=== PATIENT | female | born 1995 ===

== ENCOUNTER 2020-08-28 22:16 | Outpatient (CLI) | payer MEDICAID ==
[2020-08-28 23:20] VITALS: BP 113/72
[2020-08-28] MEDS ORDERED: LACTATED RINGERS 500 ML IV ONE (23:20)
[2020-08-29 00:10] LABS: Bilirubin,Urine NEG (Negative); Blood,Urine NEG (Negative); Calcium Oxalate Crystals,Urine 3+; Color,Urine Yellow (Yellow); Mucus,Urine FEW /HPF
== END 2020-08-29 00:08 | disposition home or self-care (01) ==
LOC: TRG 22:16 → APU 22:18 → TRG 08-29 00:08
PROVIDERS: ATTEND Obstetrics & Gynecology
DX: O47.03 False labor before 37 completed weeks of gestation, third trimester (principal); Z3A.36 36 weeks gestation of pregnancy
CPT/HCPCS: 59025; 81001

== ENCOUNTER 2020-09-01 08:43 | Inpatient (IN) | payer MEDICAID ==
[2020-09-01] MEDS ORDERED: ePHEDrine SULFATE 50 MG/1 ML INJ IV PRN (11:18)
[2020-09-01] MEDS ORDERED: TERBUTALINE 1 MG/1 ML INJ SUB-Q PRN (11:18)
[2020-09-01] MEDS ORDERED: NalbUPHINE 10 MG/1 ML INJ IV PRN (11:18)
[2020-09-01] MEDS ORDERED: fentaNYL 100 MCG/2 ML INJ IV PRN (11:18)
[2020-09-01] MEDS ORDERED: ONDANSETRON 4 MG/2 ML INJ IV PRN (11:18)
[2020-09-01] MEDS ORDERED: MINERAL OIL 30 ML ORAL LIQD PO PRN (11:18)
--- NOTE | 2020-09-01 11:18 | History and Physical Report ---
History of Present Illness Date of examination: 09/01/20 Date of admission: 09/01/2020 Chief complaint: PPROM History of present illness: PPROM Past History Past Surgical History: no surgical history Social history: no significant social history - Obstetrical History Expected Date of Delivery: 09/24/20 Actual Gestation: 36 Week(s) 5 Day(s) : 2 Medications and Allergies Allergies Allergy/AdvReac Type Severity Reaction Status Date / Time No Known Allergies Allergy Verified 09/01/20 16:11 Home Medications Medication Instructions Recorded Confirmed Last Taken Type No.137/Iron/Folic Acd 1 tab PO DAILY 09/01/20 09/01/20 08/31/20 History [[facility] Tablet] 0800 - Physical Exam Breasts: Positive: deferred Cardiovascular: Regular rate Lungs: Positive: Clear to auscultation Abdomen: Positive: normal appearance, soft, normal bowel sounds Genitourinary (Female): Positive: normal external genitalia Uterus: Positive: normal size (FH 38cm) Anus/Rectum: Positive: normal perianal skin Extremities: Positive: normal Deep Tendon Reflex Grade: Normal +2 - Obstetrical FHR: category 1 Cervical Dilatation: 1 Cervical Effacement Percentage: 50 station: -3 Uterine Contraction Pattern: Irregular Results Result Diagrams: 09/01/20 17:30 All other labs normal. Assessment and Plan admission abx misoprostil/oxytocin pain med prn EDA Ortega MD
[2020-09-01] MEDS ORDERED: OXYTOCIN DRIP 30 UNITS/500 ML BAG IV SCH ×2 (12:00)
[2020-09-01] MEDS ORDERED: AMPICILLIN/NS 2 GM/100 ML 2 GM/100 ML BAG IV ONE ×2 (12:00→17:00)
[2020-09-01] MEDS ORDERED: LIDOCAINE (2%) 20 MG/1 ML VIAL 20 ML MDV INFILTRATI ONE (12:00)
[2020-09-01] MEDS: LACTATED RINGERS 1,000 ML IV SCH (16:53)
[2020-09-01] MEDS ORDERED: miSOPROStol 25 MCG TAB PO ONE (17:00)
[2020-09-01 18:12] LABS: Hemoglobin 10.7 gm/dl (10.1-14.3); Mean Corpuscular HGB Conc 34 % (30-34); Mean Corpuscular Volume 81 fl (79-97); Platelet Count 305 K/mm3 (140-440); Red Blood Count 3.93 M/mm3 (3.65-5.03); Red Cell Distribution Width 14.6 % (13.2-15.2)
[2020-09-01] MEDS: AMPICILLIN/NS 1 GM/50 ML 1 GM/50 ML BAG IV SCH (20:21)
[2020-09-01] MEDS ORDERED: miSOPROStol 25 MCG TAB PO SCH (23:00)
[2020-09-02] MEDS: AMPICILLIN/NS 1 GM/50 ML 1 GM/50 ML BAG IV SCH ×5 (00:10→18:14)
[2020-09-02] MEDS: BUTORPHANOL 2 MG/1 ML INJ IV PRN ×2 (02:13→04:33)
[2020-09-02] MEDS: LACTATED RINGERS 1,000 ML IV SCH ×4 (02:21→17:43)
--- NOTE | 2020-09-02 04:11 | Progress Note ---
Subjective - Subjective Date of service: 09/02/20 Interval history: Misoprostil 25mcg POx1 dose given 09/02/20 at 23:00 cervix 2/50/-3 FHT 120 baseline, +ve accelerations [place]: Q5 minutes Plan for next cytotec at 05:00 then oxytocin per protocol. Maternal/ well being reassuring overall. Mayelin Ortega MD Objective - Vital Signs Vital Signs: Vital Signs - 12hr 09/01/20 09/01/20 09/01/20 16:15 16:20 16:25 Temperature Pulse Rate 102 H 97 H 109 H Respiratory Rate Blood Pressure Blood Pressure [Left] O2 Sat by Pulse 96 97 96 Oximetry 09/01/20 09/01/20 09/01/20 16:30 16:35 16:40 Temperature Pulse Rate 104 H 101 H 96 H Respiratory Rate Blood Pressure Blood Pressure [Left] O2 Sat by Pulse 97 97 100 Oximetry 09/01/20 09/01/20 09/01/20 16:45 16:50 16:55 Temperature Pulse Rate 96 H 104 H 86 Respiratory Rate Blood Pressure Blood Pressure [Left] O2 Sat by Pulse 99 98 98 Oximetry 09/01/20 09/01/20 09/01/20 16:56 17:00 17:05 Temperature 98.5 F Pulse Rate 94 H 95 H 99 H Respiratory 14 Rate Blood Pressure 104/66 Blood Pressure 104/66 [Left] O2 Sat by Pulse 97 98 97 Oximetry 09/01/20 09/01/20 09/01/20 17:10 17:15 17:20 Temperature Pulse Rate 100 H 99 H 91 H Respiratory Rate Blood Pressure Blood Pressure [Left] O2 Sat by Pulse 98 98 99 Oximetry 09/01/20 09/01/20 09/01/20 17:25 17:30 17:35 Temperature Pulse Rate 95 H 93 H 88 Respiratory Rate Blood Pressure Blood Pressure [Left] O2 Sat by Pulse 98 98 98 Oximetry 09/01/20 09/01/20 09/01/20 17:40 17:45 17:50 Temperature Pulse Rate 98 H 91 H 87 Respiratory Rate Blood Pressure Blood Pressure [Left] O2 Sat by Pulse 98 98 98 Oximetry 09/01/20 09/01/20 09/01/20 17:55 17:56 18:00 Temperature Pulse Rate 88 86 100 H Respiratory Rate Blood Pressure 103/67 Blood Pressure [Left] O2 Sat by Pulse 98 98 Oximetry 09/01/20 09/01/20 09/01/20 18:05 18:10 18:15 Temperature Pulse Rate 96 H 90 85 Respiratory Rate Blood Pressure Blood Pressure [Left] O2 Sat by Pulse 97 98 98 Oximetry 09/01/20 09/01/20 09/01/20 18:20 18:25 18:29 Temperature 98.4 F Pulse Rate 94 H 91 H 77 Respiratory 16 Rate Blood Pressure 116/71 Blood Pressure 116/71 [Left] O2 Sat by Pulse 97 98 98 Oximetry 09/01/20 09/01/20 09/01/20 18:30 18:35 18:40 Temperature Pulse Rate 92 H 92 H 90 Respiratory Rate Blood Pressure Blood Pressure [Left] O2 Sat by Pulse 98 99 98 Oximetry 09/01/20 09/01/20 09/01/20 18:45 18:50 18:55 Temperature Pulse Rate 93 H 81 83 Respiratory Rate Blood Pressure 118/77 Blood Pressure [Left] O2 Sat by Pulse 97 99 100 Oximetry 09/01/20 09/01/20 09/01/20 19:00 19:05 19:10 Temperature Pulse Rate 94 H 96 H 89 Respiratory Rate Blood Pressure Blood Pressure [Left] O2 Sat by Pulse 99 98 97 Oximetry 09/01/20 09/01/20 09/01/20 19:15 19:20 19:25 Temperature Pulse Rate 94 H 82 83 Respiratory Rate Blood Pressure Blood Pressure [Left] O2 Sat by Pulse 98 99 97 Oximetry 09/01/20 09/01/20 09/01/20 19:30 19:35 19:40 Temperature Pulse Rate 93 H 92 H 86 Respiratory Rate Blood Pressure Blood Pressure [Left] O2 Sat by Pulse 97 99 98 Oximetry 09/01/20 09/01/20 09/01/20 19:45 19:50 19:55 Temperature Pulse Rate 99 H 113 H 99 H Respiratory Rate Blood Pressure Blood Pressure [Left] O2 Sat by Pulse 99 98 99 Oximetry 09/01/20 09/01/20 09/01/20 20:00 20:05 20:09 Temperature Pulse Rate 95 H 108 H 97 H Respiratory Rate Blood Pressure 94/54 Blood Pressure [Left] O2 Sat by Pulse 99 99 Oximetry 09/01/20 09/01/20 09/01/20 20:10 20:15 20:20 Temperature 98.5 F Pulse Rate 105 H 107 H 110 H Respiratory 14 Rate Blood Pressure Blood Pressure [Left] O2 Sat by Pulse 99 98 98 Oximetry 09/01/20 09/01/20 09/01/20 20:25 20:30 20:40 Temperature Pulse Rate 114 H 114 H 110 H Respiratory Rate Blood Pressure Blood Pressure [Left] O2 Sat by Pulse 98 98 98 Oximetry 09/01/20 09/01/20 09/01/20 20:45 20:50 20:55 Temperature Pulse Rate 103 H 99 H 99 H Respiratory Rate Blood Pressure Blood Pressure [Left] O2 Sat by Pulse 98 98 98 Oximetry 09/01/20 09/01/20 09/01/20 21:00 21:05 21:10 Temperature Pulse Rate 93 H 95 H 93 H Respiratory Rate Blood Pressure Blood Pressure [Left] O2 Sat by Pulse 98 97 98 Oximetry 09/01/20 09/01/20 09/01/20 21:15 21:20 21:25 Temperature Pulse Rate 111 H 95 H 95 H Respiratory Rate Blood Pressure Blood Pressure [Left] O2 Sat by Pulse 98 98 99 Oximetry 09/01/20 09/01/20 09/01/20 21:30 21:35 21:40 Temperature Pulse Rate 104 H 105 H 107 H Respiratory Rate Blood Pressure Blood Pressure [Left] O2 Sat by Pulse 98 98 98 Oximetry 09/01/20 09/01/20 09/01/20 21:45 21:50 21:55 Temperature Pulse Rate 111 H 100 H 90 Respiratory Rate Blood Pressure Blood Pressure [Left] O2 Sat by Pulse 98 98 99 Oximetry 09/01/20 09/01/20 09/01/20 22:00 22:05 22:10 Temperature Pulse Rate 87 94 H 86 Respiratory Rate Blood Pressure Blood Pressure [Left] O2 Sat by Pulse 98 99 98 Oximetry 09/01/20 09/01/20 09/01/20 22:15 22:20 22:25 Temperature Pulse Rate 91 H 95 H 92 H Respiratory Rate Blood Pressure Blood Pressure [Left] O2 Sat by Pulse 98 98 99 Oximetry 09/01/20 09/01/20 09/01/20 22:30 22:35 22:40 Temperature Pulse Rate 92 H 95 H 88 Respiratory Rate Blood Pressure Blood Pressure [Left] O2 Sat by Pulse 99 98 98 Oximetry 09/01/20 09/01/20 09/01/20 22:45 22:50 22:55 Temperature Pulse Rate 105 H 91 H 87 Respiratory Rate Blood Pressure Blood Pressure [Left] O2 Sat by Pulse 99 99 100 Oximetry 09/01/20 09/01/20 09/01/20 23:00 23:05 23:09 Temperature 98.1 F Pulse Rate 97 H 101 H Respiratory Rate Blood Pressure Blood Pressure [Left] O2 Sat by Pulse 99 98 Oximetry 09/01/20 09/01/20 09/01/20 23:10 23:15 23:20 Temperature Pulse Rate 84 90 82 Respiratory Rate Blood Pressure Blood Pressure [Left] O2 Sat by Pulse 98 97 98 Oximetry 09/01/20 09/01/20 09/01/20 23:25 23:28 23:30 Temperature Pulse Rate 89 83 84 Respiratory Rate Blood Pressure 115/80 Blood Pressure [Left] O2 Sat by Pulse 98 97 Oximetry 09/01/20 09/01/20 09/01/20 23:35 23:40 23:45 Temperature Pulse Rate 82 90 82 Respiratory Rate Blood Pressure Blood Pressure [Left] O2 Sat by Pulse 97 98 96 Oximetry 09/01/20 09/01/20 09/02/20 23:50 23:55 00:00 Temperature Pulse Rate 88 82 84 Respiratory Rate Blood Pressure Blood Pressure [Left] O2 Sat by Pulse 96 96 97 Oximetry 09/02/20 09/02/20 09/02/20 00:05 00:10 00:15 Temperature Pulse Rate 87 80 81 Respiratory Rate Blood Pressure Blood Pressure [Left] O2 Sat by Pulse 97 98 96 Oximetry 09/02/20 09/02/20 09/02/20 00:20 00:25 00:30 Temperature Pulse Rate 86 84 86 Respiratory Rate Blood Pressure Blood Pressure [Left] O2 Sat by Pulse 98 99 98 Oximetry 09/02/20 09/02/20 09/02/20 00:35 00:40 00:45 Temperature Pulse Rate 89 95 H 83 Respiratory Rate Blood Pressure Blood Pressure [Left] O2 Sat by Pulse 98 99 97 Oximetry 09/02/20 09/02/20 09/02/20 00:50 00:55 01:00 Temperature Pulse Rate 84 95 H 80 Respiratory Rate Blood Pressure Blood Pressure [Left] O2 Sat by Pulse 97 97 98 Oximetry 09/02/20 09/02/20 09/02/20 01:05 01:10 01:12 Temperature 98.5 F Pulse Rate 93 H 94 H Respiratory Rate Blood Pressure Blood Pressure [Left] O2 Sat by Pulse 97 97 Oximetry 09/02/20 09/02/20 09/02/20 01:15 01:20 01:25 Temperature Pulse Rate 84 92 H 85 Respiratory Rate Blood Pressure Blood Pressure [Left] O2 Sat by Pulse 97 98 98 Oximetry 09/02/20 09/02/20 09/02/20 01:30 01:35 01:40 Temperature Pulse Rate 84 84 109 H Respiratory Rate Blood Pressure Blood Pressure [Left] O2 Sat by Pulse 98 98 98 Oximetry 09/02/20 09/02/20 09/02/20 01:45 01:50 01:55 Temperature Pulse Rate 86 93 H 87 Respiratory Rate Blood Pressure Blood Pressure [Left] O2 Sat by Pulse 98 96 95 Oximetry 09/02/20 09/02/20 09/02/20 02:00 02:05 02:10 Temperature Pulse Rate 97 H 83 82 Respiratory Rate Blood Pressure Blood Pressure [Left] O2 Sat by Pulse 99 98 97 Oximetry 09/02/20 09/02/20 09/02/20 02:15 02:19 02:20 Temperature Pulse Rate 95 H 78 75 Respiratory Rate Blood Pressure Blood Pressure [Left] O2 Sat by Pulse 100 92 95 Oximetry 09/02/20 09/02/20 09/02/20 02:25 02:30 02:35 Temperature 98.4 F Pulse Rate 80 78 82 Respiratory Rate Blood Pressure Blood Pressure [Left] O2 Sat by Pulse 97 99 98 Oximetry 09/02/20 09/02/20 09/02/20 02:40 02:45 02:50 Temperature Pulse Rate 94 H 82 82 Respiratory Rate Blood Pressure Blood Pressure [Left] O2 Sat by Pulse 98 98 97 Oximetry 09/02/20 09/02/20 09/02/20 02:55 03:00 03:05 Temperature Pulse Rate 83 81 82 Respiratory Rate Blood Pressure Blood Pressure [Left] O2 Sat by Pulse 98 98 98 Oximetry 09/02/20 09/02/20 09/02/20 03:10 03:15 03:20 Temperature Pulse Rate 82 82 89 Respiratory Rate Blood Pressure Blood Pressure [Left] O2 Sat by Pulse 99 99 98 Oximetry 09/02/20 09/02/20 09/02/20 03:25 03:30 03:35 Temperature Pulse Rate 77 79 74 Respiratory Rate Blood Pressure Blood Pressure [Left] O2 Sat by Pulse 98 99 99 Oximetry 09/02/20 09/02/20 09/02/20 03:40 03:45 03:50 Temperature Pulse Rate 78 70 84 Respiratory Rate Blood Pressure Blood Pressure [Left] O2 Sat by Pulse 99 99 100 Oximetry 09/02/20 09/02/20 09/02/20 03:55 04:00 04:05 Temperature Pulse Rate 80 78 77 Respiratory Rate Blood Pressure Blood Pressure [Left] O2 Sat by Pulse 100 100 100 Oximetry - Labs Labs: Abnormal Labs 09/01/20 17:30 MCH 27 L Laboratory Results - last 24 hr 09/01/20 09/01/20 17:30 17:30 WBC 8.8 RBC 3.93 Hgb 10.7 Hct 32.0 MCV 81 MCH 27 L MCHC 34 RDW 14.6 Plt Count 305 Blood Type O POSITIVE Antibody Screen Negative
--- NOTE | 2020-09-02 07:46 | Anesthesia Consultation ---
Anesthesia Consult and Med Hx Date of service: 09/02/20 - Airway Anesthetic Teeth Evaluation: Good ROM Head & Neck: Adequate Mental/Hyoid Distance: Adequate Mallampati Class: Class II Intubation Access Assessment: Probably Good - Pulmonary Exam CTA: Yes - Cardiac Exam Cardiac Exam: RRR - Pre-Operative Health Status ASA Pre-Surgery Classification: ASA2 Proposed Anesthetic Plan: Epidural - Pulmonary Hx Asthma: No - Cardiovascular System Hx Hypertension: No - Central Nervous System Hx Seizures: No Hx Psychiatric Problems: No - Endocrine Hx Renal Disease: No Hx Hypothyroidism: No Hx Hyperthyroidism: No - Hematic Hx Anemia: No Hx Sickle Cell Disease: No - Other Systems Hx Alcohol Use: No
--- NOTE | 2020-09-02 08:07 | Progress Note ---
Labor Epidural - Labor Epidural Start Time: 07:55 Stop Time: 07:59 Performed by:: CONRAD NELSON Procedure: Patient is requesting epidural for labor pain. H&P, and labs reviewed. Procedure explained, questions answered, consent obtained. Patient in sitting position with blood pressure cuff and pulse ox on and working. Timeout performed immediately before start of procedure. Sterile chlorahexadine 0.5% prep/drape. 3 mL 1% lidocaine skin wheal at L[3]-L[4]. 18-gauge Gameotictead epidural needle advanced to [id number] with saline at [7] cm. Epidural catheter advanced to [12] cm, negative aspiration for blood and csf, negative test dose 3 ml 1.5% lidocaine with epinephrine. Epidural dexmedetomidine [30] mcg administered. Sterile steri-strips and tegaderm applied, followed by tape reinforcement. Patient tolerated procedure well. Conrad LOBO
[2020-09-02] MEDS ORDERED: ePHEDrine SULFATE 50 MG/1 ML INJ IV PRN (08:34)
[2020-09-02] MEDS ORDERED: NALOXONE 2 MG/2 ML INJ IV PRN (08:34)
[2020-09-02] MEDS: fentaNYL-BUPIV 2 MCG/ML-0.125% 200 MCG/100 ML BAG EPIDURAL SCH ×2 (08:54→17:14)
--- NOTE | 2020-09-02 09:15 | Progress Note ---
Assessment and Plan A: at 36 weeks, 6 days gestation. PPROM. P: Continuous EFM. GBS prophylaxis. Subjective - Subjective Date of service: 09/02/20 Principal diagnosis: at 36 weeks, 6 days gestation; PPROM Interval history: Assumed care of patient at 08:00 today. Patient is leaking clear fluid. No vaginal bleeding. Has epidural and is comfortable. Has had cytotec. SVE 4/60/-3. Contractions every 3 1/2 to 5 minutes. Uterus palpates soft between contractions. Patient reports: loss of fluid, contractions Objective - Vital Signs Vital Signs: Vital Signs - 12hr 09/01/20 09/01/20 09/01/20 21:15 21:20 21:25 Temperature Pulse Rate 111 H 95 H 95 H Respiratory Rate Blood Pressure O2 Sat by Pulse 98 98 99 Oximetry 09/01/20 09/01/20 09/01/20 21:30 21:35 21:40 Temperature Pulse Rate 104 H 105 H 107 H Respiratory Rate Blood Pressure O2 Sat by Pulse 98 98 98 Oximetry 09/01/20 09/01/20 09/01/20 21:45 21:50 21:55 Temperature Pulse Rate 111 H 100 H 90 Respiratory Rate Blood Pressure O2 Sat by Pulse 98 98 99 Oximetry 09/01/20 09/01/20 09/01/20 22:00 22:05 22:10 Temperature Pulse Rate 87 94 H 86 Respiratory Rate Blood Pressure O2 Sat by Pulse 98 99 98 Oximetry 09/01/20 09/01/20 09/01/20 22:15 22:20 22:25 Temperature Pulse Rate 91 H 95 H 92 H Respiratory Rate Blood Pressure O2 Sat by Pulse 98 98 99 Oximetry 09/01/20 09/01/20 09/01/20 22:30 22:35 22:40 Temperature Pulse Rate 92 H 95 H 88 Respiratory Rate Blood Pressure O2 Sat by Pulse 99 98 98 Oximetry 09/01/20 09/01/20 09/01/20 22:45 22:50 22:55 Temperature Pulse Rate 105 H 91 H 87 Respiratory Rate Blood Pressure O2 Sat by Pulse 99 99 100 Oximetry 09/01/20 09/01/20 09/01/20 23:00 23:05 23:09 Temperature 98.1 F Pulse Rate 97 H 101 H Respiratory Rate Blood Pressure O2 Sat by Pulse 99 98 Oximetry 05/09/01/20 09/01/20 23:10 23:15 23:20 Temperature Pulse Rate 84 90 82 Respiratory Rate Blood Pressure O2 Sat by Pulse 98 97 98 Oximetry 09/01/20 09/01/20 09/01/20 23:25 23:28 23:30 Temperature Pulse Rate 89 83 84 Respiratory Rate Blood Pressure 115/80 O2 Sat by Pulse 98 97 Oximetry 09/01/20 09/01/20 09/01/20 23:35 23:40 23:45 Temperature Pulse Rate 82 90 82 Respiratory Rate Blood Pressure O2 Sat by Pulse 97 98 96 Oximetry 09/01/20 09/01/20 09/02/20 23:50 23:55 00:00 Temperature Pulse Rate 88 82 84 Respiratory Rate Blood Pressure O2 Sat by Pulse 96 96 97 Oximetry 09/02/20 09/02/20 09/02/20 00:05 00:10 00:15 Temperature Pulse Rate 87 80 81 Respiratory Rate Blood Pressure O2 Sat by Pulse 97 98 96 Oximetry 09/02/20 09/02/20 09/02/20 00:20 00:25 00:30 Temperature Pulse Rate 86 84 86 Respiratory Rate Blood Pressure O2 Sat by Pulse 98 99 98 Oximetry 09/02/20 09/02/20 09/02/20 00:35 00:40 00:45 Temperature Pulse Rate 89 95 H 83 Respiratory Rate Blood Pressure O2 Sat by Pulse 98 99 97 Oximetry 09/02/20 09/02/20 09/02/20 00:50 00:55 01:00 Temperature Pulse Rate 84 95 H 80 Respiratory Rate Blood Pressure O2 Sat by Pulse 97 97 98 Oximetry 09/02/20 09/02/20 09/02/20 01:05 01:10 01:12 Temperature 98.5 F Pulse Rate 93 H 94 H Respiratory Rate Blood Pressure O2 Sat by Pulse 97 97 Oximetry 09/02/20 09/02/20 09/02/20 01:15 01:20 01:25 Temperature Pulse Rate 84 92 H 85 Respiratory Rate Blood Pressure O2 Sat by Pulse 97 98 98 Oximetry 09/02/20 09/02/20 09/02/20 01:30 01:35 01:40 Temperature Pulse Rate 84 84 109 H Respiratory Rate Blood Pressure O2 Sat by Pulse 98 98 98 Oximetry 09/02/20 09/02/20 09/02/20 01:45 01:50 01:55 Temperature Pulse Rate 86 93 H 87 Respiratory Rate Blood Pressure O2 Sat by Pulse 98 96 95 Oximetry 09/02/20 09/02/20 09/02/20 02:00 02:05 02:10 Temperature Pulse Rate 97 H 83 82 Respiratory Rate Blood Pressure O2 Sat by Pulse 99 98 97 Oximetry 09/02/20 09/02/20 09/02/20 02:15 02:19 02:20 Temperature Pulse Rate 95 H 78 75 Respiratory Rate Blood Pressure O2 Sat by Pulse 100 92 95 Oximetry 09/02/20 09/02/20 09/02/20 02:25 02:30 02:35 Temperature 98.4 F Pulse Rate 80 78 82 Respiratory Rate Blood Pressure O2 Sat by Pulse 97 99 98 Oximetry 09/02/20 09/02/20 09/02/20 02:40 02:45 02:50 Temperature Pulse Rate 94 H 82 82 Respiratory Rate Blood Pressure O2 Sat by Pulse 98 98 97 Oximetry 09/02/20 09/02/20 09/02/20 02:55 03:00 03:05 Temperature Pulse Rate 83 81 82 Respiratory Rate Blood Pressure O2 Sat by Pulse 98 98 98 Oximetry 09/02/20 09/02/20 09/02/20 03:10 03:15 03:20 Temperature Pulse Rate 82 82 89 Respiratory Rate Blood Pressure O2 Sat by Pulse 99 99 98 Oximetry 09/02/20 09/02/20 09/02/20 03:25 03:30 03:35 Temperature Pulse Rate 77 79 74 Respiratory Rate Blood Pressure O2 Sat by Pulse 98 99 99 Oximetry 09/02/20 09/02/20 09/02/20 03:40 03:45 03:50 Temperature Pulse Rate 78 70 84 Respiratory Rate Blood Pressure O2 Sat by Pulse 99 99 100 Oximetry 09/02/20 09/02/20 09/02/20 03:55 04:00 04:05 Temperature Pulse Rate 80 78 77 Respiratory Rate Blood Pressure O2 Sat by Pulse 100 100 100 Oximetry 09/02/20 09/02/20 09/02/20 04:10 04:15 04:20 Temperature Pulse Rate 87 85 73 Respiratory Rate Blood Pressure O2 Sat by Pulse 100 100 100 Oximetry 09/02/20 09/02/20 09/02/20 04:25 04:30 04:35 Temperature Pulse Rate 96 H 85 84 Respiratory Rate Blood Pressure O2 Sat by Pulse 100 100 100 Oximetry 09/02/20 09/02/20 09/02/20 04:40 04:45 04:50 Temperature Pulse Rate 81 79 78 Respiratory Rate Blood Pressure O2 Sat by Pulse 100 98 99 Oximetry 09/02/20 09/02/20 09/02/20 04:55 05:00 05:05 Temperature Pulse Rate 78 74 78 Respiratory Rate Blood Pressure O2 Sat by Pulse 99 99 99 Oximetry 09/02/20 09/02/20 09/02/20 05:10 05:15 05:20 Temperature Pulse Rate 78 78 98 H Respiratory Rate Blood Pressure O2 Sat by Pulse 99 100 100 Oximetry 09/02/20 09/02/20 09/02/20 05:25 05:30 05:35 Temperature Pulse Rate 77 91 H 78 Respiratory Rate Blood Pressure O2 Sat by Pulse 99 99 100 Oximetry 09/02/20 09/02/20 09/02/20 05:40 05:45 05:50 Temperature Pulse Rate 73 77 75 Respiratory Rate Blood Pressure O2 Sat by Pulse 100 100 100 Oximetry 09/02/20 09/02/20 09/02/20 05:55 06:00 06:05 Temperature Pulse Rate 74 80 90 Respiratory Rate Blood Pressure O2 Sat by Pulse 100 100 100 Oximetry 09/02/20 09/02/20 09/02/20 06:10 06:15 06:20 Temperature Pulse Rate 81 101 H 77 Respiratory Rate Blood Pressure O2 Sat by Pulse 100 100 100 Oximetry 09/02/20 09/02/20 09/02/20 06:25 06:30 06:31 Temperature 98.8 F Pulse Rate 107 H 78 Respiratory Rate Blood Pressure O2 Sat by Pulse 100 100 Oximetry 09/02/20 09/02/20 09/02/20 06:35 06:40 06:42 Temperature Pulse Rate 81 76 78 Respiratory Rate Blood Pressure 109/78 O2 Sat by Pulse 100 100 Oximetry 09/02/20 09/02/20 09/02/20 06:45 06:50 06:55 Temperature Pulse Rate 89 79 80 Respiratory Rate Blood Pressure O2 Sat by Pulse 100 100 100 Oximetry 09/02/20 09/02/20 09/02/20 07:00 07:05 07:10 Temperature Pulse Rate 85 79 85 Respiratory Rate Blood Pressure O2 Sat by Pulse 100 100 100 Oximetry 09/02/20 09/02/20 09/02/20 07:15 07:20 07:21 Temperature Pulse Rate 83 80 74 Respiratory Rate Blood Pressure 104/75 O2 Sat by Pulse 100 100 89 Oximetry 09/02/20 09/02/20 09/02/20 07:23 07:25 07:30 Temperature 98.3 F Pulse Rate 109 H 86 Respiratory 20 Rate Blood Pressure O2 Sat by Pulse 100 100 100 Oximetry 09/02/20 09/02/20 09/02/20 07:35 07:40 07:53 Temperature Pulse Rate 82 110 H 78 Respiratory Rate Blood Pressure O2 Sat by Pulse 100 100 100 Oximetry 09/02/20 09/02/20 09/02/20 07:55 07:58 07:59 Temperature Pulse Rate 82 87 83 Respiratory Rate Blood Pressure 114/69 111/70 109/70 O2 Sat by Pulse 100 Oximetry 09/02/20 09/02/20 09/02/20 08:01 08:03 08:05 Temperature Pulse Rate 79 78 77 Respiratory Rate Blood Pressure 108/71 115/73 115/72 O2 Sat by Pulse 99 Oximetry 09/02/20 09/02/20 09/02/20 08:07 08:08 08:09 Temperature Pulse Rate 77 88 87 Respiratory Rate Blood Pressure 111/70 113/68 O2 Sat by Pulse 96 Oximetry 09/02/20 09/02/20 09/02/20 08:12 08:13 08:15 Temperature Pulse Rate 90 89 82 Respiratory Rate Blood Pressure 105/65 O2 Sat by Pulse 94 94 Oximetry 09/02/20 09/02/20 09/02/20 08:18 08:19 08:23 Temperature Pulse Rate 88 86 84 Respiratory Rate Blood Pressure 104/62 O2 Sat by Pulse 92 92 Oximetry 09/02/20 09/02/20 09/02/20 08:24 08:27 08:28 Temperature Pulse Rate 82 82 84 Respiratory Rate Blood Pressure 106/64 O2 Sat by Pulse 94 94 Oximetry 09/02/20 09/02/20 09/02/20 08:30 08:33 08:35 Temperature Pulse Rate 87 84 71 Respiratory Rate Blood Pressure 105/70 105/66 O2 Sat by Pulse 92 94 Oximetry 09/02/20 09/02/20 09/02/20 08:38 08:39 08:43 Temperature Pulse Rate 83 83 90 Respiratory Rate Blood Pressure 103/67 O2 Sat by Pulse 93 100 Oximetry 09/02/20 09/02/20 09/02/20 08:44 08:48 08:50 Temperature Pulse Rate 84 71 77 Respiratory Rate Blood Pressure 108/73 111/72 O2 Sat by Pulse 99 Oximetry 09/02/20 09/02/20 09/02/20 08:53 08:58 09:03 Temperature Pulse Rate 74 71 71 Respiratory Rate Blood Pressure O2 Sat by Pulse 100 100 100 Oximetry 09/02/20 09:08 Temperature Pulse Rate 68 Respiratory Rate Blood Pressure 104/68 O2 Sat by Pulse 100 Oximetry - Exam Abdomen: Present: normal appearance, soft. Absent: distention, tenderness, guarding, rigidity Uterus: Present: fundal height above umbilicus. Absent: tenderness Uterine Contraction Monitor Mode: External Cervical Dilatation: 4 Cervical Effacement Percentage: 60 station: -3 Uterine Contraction Pattern: Regular Uterine Contraction Intensity: Moderate - Labs Labs: Abnormal Labs 09/01/20 17:30 MCH 27 L Laboratory Results - last 24 hr 09/01/20 09/01/20 17:30 17:30 WBC 8.8 RBC 3.93 Hgb 10.7 Hct 32.0 MCV 81 MCH 27 L MCHC 34 RDW 14.6 Plt Count 305 Blood Type O POSITIVE Antibody Screen Negative
--- NOTE | 2020-09-02 13:36 | Event Note ---
Date: 09/02/20 [facility] [place] 5.-2.
--- NOTE | 2020-09-02 16:50 | Event Note ---
Date: 09/02/20 SVE /-1. Patient remains afebrile.
[2020-09-02 18:05] LABS: Hepatitis C Virus Antibody Non-Reactive (NonReactive)
--- NOTE | 2020-09-02 18:33 | Event Note ---
Date: 09/02/20+1.
[2020-09-02] MEDS ORDERED: LACTATED RINGERS 1,000 ML IV ONE (20:26)
[2020-09-02] MEDS ORDERED: METHYLERGONOVINE MALEATE 0.2 MG/ML VIAL IM ONE (20:27)
[2020-09-02] MEDS ORDERED: dexAMETHasone 4 MG/ML VIAL IV ONE (20:27)
[2020-09-02] MEDS ORDERED: GENTAMICIN 100 MG in SODIUM CHLORIDE 0.9% 100 ML IV SCH (20:30)
--- NOTE | 2020-09-02 20:34 | XRay Report ---
CHEST 1 VIEW 09/02/2020 8:17 PM INDICATION / CLINICAL INFORMATION: shortness of breath. COMPARISON: None available. FINDINGS: SUPPORT DEVICES: None. HEART / MEDIASTINUM: No significant abnormality. LUNGS / PLEURA: No significant pulmonary or pleural abnormality. No pneumothorax. ADDITIONAL FINDINGS: No significant additional findings. IMPRESSION: 1. No acute findings. Signer Name: Lino Rodriguez MD Signed: 09/02/2020 8:30 PM Workstation Name: [id number]
[2020-09-02] MEDS ORDERED: SODIUM CHLORIDE 0.9% 500 ML 500 ML IV NR (20:36)
[2020-09-02] MEDS: AMPICILLIN/NS 2 GM/100 ML 2 GM/100 ML BAG IV SCH (20:43)
[2020-09-02] MEDS: ACETAMINOPHEN 325 MG TAB PO PRN (21:00)
[2020-09-02] MEDS ORDERED: ONDANSETRON 4 MG/2 ML INJ IV PRN (21:04)
[2020-09-02] MEDS ORDERED: WITCH HAZEL/ GLYCERIN PAD TP PRN (21:04)
[2020-09-02] MEDS ORDERED: LANOLIN/ZINC/DIMETHICONE (LANSINOH) 7 GM TP PRN (21:04)
[2020-09-02 21:05] LABS: Hematocrit 27.3 % (30.3-42.9); Hemoglobin 8.9 gm/dl (10.1-14.3); Mean Corpuscular HGB Conc 33 % (30-34); Mean Corpuscular Volume 83 fl (79-97); Platelet Count 304 K/mm3 (140-440); Red Blood Count 3.31 M/mm3 (3.65-5.03); Red Cell Distribution Width 14.7 % (13.2-15.2)
[2020-09-02] MEDS ORDERED: miSOPROStol 200 MCG TAB ONE (21:10)
[2020-09-02] MEDS ORDERED: miSOPROStol 200 MCG TAB PR ONE (21:15)
[2020-09-02 21:20] LABS: Alanine Aminotransferase 9 units/L (7-56); Albumin 2.4 g/dL (3.9-5); Blood Urea Nitrogen 6 mg/dL (7-17); Calcium 7.8 mg/dL (8.4-10.2); Hemolysis Index 3
--- NOTE | 2020-09-02 21:24 | Procedure Note ---
OB Delivery Note - Delivery Date of Delivery: 09/02/20 Surgeon: THAI DAVIS Estimated blood loss: other (350 cc) - Vaginal Delivery presentation: vertex Delivery position: OA Intrapartum events: labor-<37 weeks, other(please specify) (prolonged ROM, temp. of 100.6 at delivery) Delivery induction: misoprostol Delivery augmentation: pitocin Delivery monitor: external FHT, external uterine Route of delivery: Delivery placenta: spontaneous Delivery cord: 3 umbilical vessels Episiotomy: none Delivery laceration: 1st degree Delivery repair: vicryl Anesthesia: epidural Delivery comments: Spontaneous vaginal delivery at 19:17 of liveborn male infant weighing 5 lb. 1 oz. over first degree perineal laceration with apgars of 7/8. Epidural anesthesia. was atraumatic; loose nuchal cord times 1, manually reduced. Baby placed skin to skin with mom immediately after ; 3 vessel cord double clamped and cut and baby taken to radiant warmer. Spontaneous cry and respirations. NICU team present for delivery. Cord blood obtained. Spontaneous delivery of intact placenta and membranes by berrios mechanism. EBL 350 cc. Pitocin to IV fluids at placental delivery. Fundus firm and midline. First degree labial lacerations and first degree perineal laceration repaired with 2-0 vicryl. No other lacerations noted. Sponge count correct. Patient had temp of 100.6 at time of delivery and tachycardia noted just after . Placenta sent to path. Blood and urine cultures ordered. Ampicillin, Gentamicin, and Clindamycin started. IV fluid bolus, EKG, CXR, CBC, CMP. PRBC orderd. Consulted with Dr. Ortega re: this patient and she came and evaluated patient.
[2020-09-02] MEDS ORDERED: SODIUM CHLORIDE 0.9% 1000 ML 1,000 ML ONE (21:28)
[2020-09-02 21:35] LABS: BUN/Creatinine Ratio 12
[2020-09-02] MEDS ORDERED: FERROUS SULFATE 325 MG TAB PO SCH (22:00)
[2020-09-02] MEDS ORDERED: miSOPROStol 100 MCG TAB PO SCH (23:00)
[2020-09-02] MEDS ORDERED: miSOPROStol 25 MCG TAB PO SCH (23:00)
[2020-09-03] MEDS: GENTAMICIN/NS 100 MG/100 ML 100 MG/100 ML BAG IV SCH ×3 (01:04→18:38)
[2020-09-03] MEDS: LACTATED RINGERS 1,000 ML IV SCH (01:13)
[2020-09-03] MEDS: AMPICILLIN/NS 2 GM/100 ML 2 GM/100 ML BAG IV SCH ×3 (06:10→20:08)
[2020-09-03] MEDS: IBUPROFEN 600 MG TAB PO PRN ×2 (06:10→13:56)
[2020-09-03] MEDS: DOCUSATE SODIUM 100 MG CAP PO SCH (10:22)
[2020-09-03] MEDS: HYDROcodone/ACETAMINOPHEN 5-325 MG TAB PO PRN ×2 (10:27→18:42)
[2020-09-03] MEDS ORDERED: IRON DEXTRAN COMPLEX 100 MG/2 ML INJ IM NR (10:35)
--- NOTE | 2020-09-03 11:48 | Progress Note ---
Assessment and Plan A: PP Day #1 Maternal Fever/Tachycardia Asymptomatic Anemia P: Follow Routine Orders Continue Triple ABX Coverage x 24 hours Continue FeSO4 PO BID Infed 100mg IM x 1 dose Subjective - Subjective Date of service: 09/03/20 Principal diagnosis: at 36 weeks, 6 days gestation; PPROM Patient reports: appetite normal, voiding normally, pain well controlled, flatus, ambulating normally [place]: bottle feeding Objective - Vital Signs Latest vital signs: Vital Signs Temp Pulse Resp BP Pulse Ox 09/03/20 07:34 105 H 99 09/03/20 07:33 99 F 20 09/03/20 07:29 110 H 98 09/03/20 07:24 101 H 98 09/03/20 07:23 100 H 109/59 09/03/20 07:19 105 H 98 09/03/20 07:14 107 H 97 09/03/20 07:09 111 H 100 09/03/20 07:04 106 H 97 09/03/20 06:59 112 H 99 09/03/20 06:54 115 H 98 09/03/20 06:49 109 H 97 09/03/20 06:44 114 H 99 09/03/20 06:39 116 H 98 09/03/20 06:34 115 H 99 09/03/20 06:29 112 H 98 09/03/20 06:24 112 H 98 09/03/20 06:23 106 H 114/63 09/03/20 06:19 115 H 98 09/03/20 06:13 118 H 97 09/03/20 06:10 98.6 F 20 09/03/20 06:08 111 H 98 09/03/20 06:03 114 H 97 09/03/20 05:58 124 H 99 09/03/20 05:53 118 H 99 09/03/20 05:48 114 H 98 09/03/20 05:43 124 H 98 09/03/20 05:38 120 H 99 09/03/20 05:33 120 H 98 09/03/20 05:28 131 H 96 09/03/20 05:23 121 H 105/59 96 09/03/20 05:18 120 H 96 09/03/20 05:13 116 H 96 09/03/20 05:08 125 H 96 09/03/20 05:03 120 H 96 09/03/20 04:58 114 H 96 05 04:53 119 H 97 05 04:48 122 H 97 05 04:43 118 H 97 05 04:38 117 H 96 05 04:33 123 H 96 05 04:28 112 H 97 05 04:23 121 H 104/57 98 05 04:18 115 H 98 05 04:13 116 H 97 05 04:08 117 H 97 05 04:03 113 H 98 05 03:58 114 H 98 05 03:53 119 H 98 05 03:48 118 H 98 05 03:43 118 H 98 05 03:38 115 H 98 05 03:33 116 H 98 05 03:28 114 H 98 05 03:23 119 H 98 05 03:18 113 H 98 05 03:13 111 H 98 05 03:09 107 H 110/62 05 03:08 116 H 98 05 03:03 114 H 98 05 02:58 119 H 98 05 02:53 111 H 99 05 02:48 111 H 98 05 02:43 120 H 98 05 02:39 115 H 111/67 05 02:38 120 H 98 05 02:33 112 H 98 05 02:28 114 H 98 05 02:23 114 H 99 05 02:18 111 H 98 05 02:13 120 H 98 05 02:09 109 H 111/67 05 02:08 121 H 99 05 02:03 112 H 98 05 01:58 116 H 98 05 01:53 120 H 99 05 01:48 111 H 98 0524 01:43 109 H 99 052421 01:38 108 H 99 05 01:33 115 H 99 05/24/21 01:28 109 H 99 09/03/20 01:23 114 H 98 09/03/20 01:21 98.5 F 20 09/03/20 01:18 111 H 98 09/03/20 01:13 124 H 98 09/03/20 01:12 106 H 103/60 09/03/20 01:08 109 H 98 09/03/20 01:07 112 H 95/58 09/03/20 01:03 110 H 97 09/03/20 01:02 108 H 87/54 09/03/20 00:58 117 H 98 09/03/20 00:57 105 H 98/55 09/03/20 00:53 106 H 99/50 98 09/03/20 00:48 122 H 97 09/03/20 00:47 109 H 103/56 09/03/20 00:43 119 H 98 09/03/20 00:42 109 H 101/58 09/03/20 00:38 119 H 97 09/03/20 00:37 114 H 100/64 09/03/20 00:33 98.4 F 110 H 18 105/65 97 09/03/20 00:32 115 H 105/65 09/03/20 00:28 115 H 98 09/03/20 00:27 114 H 107/65 09/03/20 00:23 118 H 97 09/03/20 00:22 116 H 104/62 09/03/20 00:18 122 H 97 09/03/20 00:17 114 H 100/57 09/03/20 00:13 117 H 97 09/03/20 00:12 113 H 103/61 09/03/20 00:08 121 H 97 09/03/20 00:07 112 H 106/65 09/03/20 00:03 98.5 F 117 H 20 110/72 97 09/03/20 00:02 123 H 110/72 09/02/20 23:58 124 H 97 09/02/20 23:57 117 H 109/69 09/02/20 23:53 129 H 98 09/02/20 23:52 118 H 108/70 05 23:48 119 H 97 09/02/20 23:47 116 H 103/61 09/02/20 23:43 120 H 97 09/02/20 23:42 115 H 107/65 09/02/20 23:38 117 H 98 09/02/20 23:37 125 H 102/63 09/02/20 23:33 98.4 F 119 H 20 99/61 98 09/02/20 23:32 123 H 99/61 09/02/20 23:28 118 H 99 09/02/20 23:27 122 H 96/60 09/02/20 23:23 113 H 99 09/02/20 23:22 115 H 99/64 09/02/20 23:18 123 H 99 09/02/20 23:17 125 H 105/65 09/02/20 23:13 124 H 98 09/02/20 23:12 120 H 100/65 09/02/20 23:08 124 H 98 09/02/20 23:07 112 H 98/65 09/02/20 23:03 98.4 F 125 H 20 98/68 98 09/02/20 23:02 126 H 98/68 09/02/20 22:58 132 H 99 09/02/20 22:57 130 H 94/64 09/02/20 22:53 130 H 98 09/02/20 22:52 129 H 101/63 09/02/20 22:48 125 H 99 09/02/20 22:47 127 H 103/64 09/02/20 22:43 135 H 99 09/02/20 22:42 130 H 102/61 09/02/20 22:38 134 H 99 09/02/20 22:37 121 H 105/68 09/02/20 22:33 98.3 F 132 H 18 103/64 98 09/02/20 22:32 117 H 102/64 09/02/20 22:28 131 H 100 09/02/20 22:27 131 H 107/67 09/02/20 22:23 134 H 99 09/02/20 22:22 127 H 102/67 09/02/20 22:18 98.4 F 130 H 20 101/67 99 09/02/20 22:17 130 H 101/67 09/02/20 22:13 138 H 99 09/02/20 22:12 129 H 108/68 09/02/20 22:08 138 H 99 09/02/20 22:07 134 H 104/70 05/23/21 22:03 98.7 F 137 H 18 102/67 99 05/23/21 22:02 133 H 102/67 0523/21 22:00 18 052321 21:58 136 H 18 101/65 98 05/23/21 21:57 137 H 101/65 05/23/21 21:53 98.5 F 147 H 20 104/65 99 05/23/21 21:52 137 H 104/65 05/23/21 21:50 134 H 104/65 05/23/21 21:48 98.6 F 135 H 20 104/65 100 05/23/21 21:43 132 H 100 0523/21 21:42 136 H 101/56 05/21 21:38 138 H 105/53 100 05/21 21:33 145 H 100 0521 21:32 129 H 106/56 05/21 21:28 138 H 100 0521 21:27 142 H 102/62 0521 21:24 144 H 125/56 05/21 21:23 144 H 100 0523/21 21:21 155 H 97/56 05/21 21:18 156 H 134/58 100 0523/21 21:15 179 H 107/82 05/21 21:13 147 H 100 05/21 21:12 137 H 100/68 05/21 21:09 148 H 97/61 05/21 21:08 145 H 100 05/21 21:06 136 H 105/57 0521 21:05 144 H 87 0523/21 21:03 151 H 123/58 100 05/23/21 21:02 98.5 F 18 0521 20:58 144 H 113/77 100 05/23/21 20:57 139 H 68/47 05/23/21 20:54 146 H 96/56 05/23/21 20:53 143 H 100 05/23/21 20:51 155 H 83/60 05/23/21 20:48 155 H 95/61 100 05/23/21 20:46 155 H 108/63 05/23/21 20:43 151 H 100 05/23/21 20:40 18 05/23/21 20:38 153 H 100 05/23/21 20:33 160 H 100 05 20:28 167 H 100 05 20:27 166 H 112/56 05 20:23 172 H 100 05 20:21 157 H 90/60 05 20:18 161 H 99/56 100 05 20:16 148 H 102/51 05 20:13 149 H 100 05 20:08 179 H 100 05 20:06 173 H 105/66 05 20:03 168 H 108/64 100 05 20:00 162 H 116/60 05 19:58 163 H 100 05 19:56 164 H 112/81 05 19:54 166 H 90/65 05 19:53 164 H 100 05 19:51 169 H 115/66 05 19:48 169 H 115/68 99 05 19:45 146 H 132/78 05 19:43 138 H 95 09/02/20 19:40 18 05 19:38 157 H 92/60 83 L 09/02/20 19:37 141 H 88/53 05 19:36 170 H 90 05 19:33 153 H 100 09/02/20 19:28 156 H 100 05 19:27 148 H 103/59 91 05 19:23 164 H 99 05 19:22 160 H 102/55 05 19:18 148 H 98 05 19:13 118 H 99 05 19:08 128 H 100 05 19:03 109 H 100 05 18:58 98 H 100 05 18:53 109 H 100 05 18:52 112 H 121/75 92 05 18:48 104 H 100 05 18:44 113 H 79 L 05 18:43 110 H 94 05 18:38 107 H 100 05 18:36 100 H 116/74 05 18:33 106 H 99 05 18:28 97 H 99 05 18:23 107 H 116/72 100 05 18:18 102 H 100 05 18:13 107 H 100 05 18:08 111 H 100 05 18:07 91 H 118/76 05 18:03 96 H 100 05 17:58 97 H 100 05 17:53 101 H 100 05 17:51 94 H 108/69 05 17:48 102 H 100 05 17:43 97 H 100 05 17:38 98 H 100 05 17:36 91 H 108/68 05 17:33 98 H 100 05 17:30 98.9 F 20 09/02/20 17:28 93 H 100 05 17:23 101 H 99 05 17:21 98 H 115/74 05 17:18 92 H 100 05 17:13 104 H 100 05 17:08 105 H 100 05 17:06 116 H 105/70 05 17:03 98 H 100 05 16:58 113 H 100 05 16:53 100 H 100 05 16:51 105 H 99/63 05 16:48 103 H 100 05 16:43 103 H 99 05 16:38 98 H 99 05 16:36 87 96/55 05 16:33 108 H 98 05 16:28 107 H 99 05 16:23 102 H 99 05 16:21 82 95/51 05 16:18 88 100 05 16:13 110 H 99 05 16:08 90 99 05 16:07 85 99/54 05 16:03 100 H 100 05 16:00 98.4 F 20 05 15:58 107 H 100 05 15:53 112 H 100 05 15:51 115 H 119/76 05// 15:48 104 H 99 05// 15:46 111 H 117/77 05 15:43 123 H 99 05 15:38 112 H 100 05 15:36 97 H 116/76 05/ 15:33 100 H 100 05/23/21 15:28 105 H 100 05/ 15:23 98 H 100 05/21 15:22 86 115/74 05/ 15:18 107 H 98 05/ 15:16 89 121/76 05// 15:13 92 H 99 05 15:08 100 H 99 05 15:07 90 118/76 05 15:03 97 H 100 05 14:58 99 H 100 05 14:53 80 100 05 14:51 86 114/65 05 14:48 82 100 05 14:43 95 H 100 05 14:38 91 H 100 05 14:37 85 113/59 05/ 14:33 90 100 05 14:28 80 100 05 14:23 79 111/55 100 05 14:18 80 100 05 14:13 100 H 100 05 14:08 100 H 100 05 14:07 78 108/69 05 14:03 82 100 05 14:00 98.2 F 20 05 13:58 97 H 100 05 13:53 82 100 05// 13:51 83 104/64 05// 13:48 94 H 100 05// 13:43 89 100 05//21 13:38 84 100 05// 13:36 87 109/71 05//21 13:33 102 H 100 05//21 13:28 91 H 100 05/23/21 13:23 81 100 05/23/21 13:21 110 H 112/79 05/23/21 13:18 89 100 05// 13:17 77 110/73 05/23/21 13:13 95 H 100 09/02/20 13:08 82 100 09/02/20 13:07 83 114/77 09/02/20 13:03 79 100 09/02/20 12:58 90 100 09/02/20 12:53 83 104/61 100 09/02/20 12:48 83 100 09/02/20 12:43 78 100 09/02/20 12:38 76 100/61 100 09/02/20 12:33 81 99 09/02/20 12:29 81 101/64 09/02/20 12:28 79 100 09/02/20 12:23 77 100 09/02/20 12:21 75 101/64 09/02/20 12:18 76 99 09/02/20 12:13 76 100 09/02/20 12:08 81 100 09/02/20 12:06 73 99/63 09/02/20 12:03 82 100 09/02/20 11:58 70 100 09/02/20 11:53 77 100 09/02/20 11:51 75 104/69 09/02/20 11:48 79 100 09/02/20 11:45 97.8 F 18 100 Intake and Output 09/02/20 09/03/20 09/03/20 22:59 06:59 14:59 Intake Total 2759.792 8106.5 Output Total 600 750 600 Balance 507.633 537.5 -600 Intake: IV 9897.725 7688.5 AMPICILLIN/NS 2 GM/100 ML 100 2 gm In 100 ml @ 100 mls /hr IV Q6H DANNY Rx#: [id number] GENTAMICIN/NS 100 MG/100 100 ML 100 mg In 100 ml @ 200 mls/hr IV Q8HR DANNY Rx#: [id number] Lactated Ringers 1,000 ml 1000 937.5 @ 125 mls/hr IV DIRECT DANNY Rx#:[id number] PITOCin/NS 30 UNIT/500ML 7.633 30 units In 500 ml @ 2 mls/hr IV TITR DANNY Rx#: [id number] Blood Product 0 250 Leukoreduced Red Blood 0 250 Cells Unit [id number] Output: Urine 600 750 600 Indwelling 200 Indwelling Catheter 600 750 400 Other: Total, Output Amount 600 150 400 # Voids Indwelling Catheter 1 - Exam Breasts: Present: normal Cardiovascular: Present: Regular rate Lungs: Present: Clear to auscultation, Normal air movement Abdomen: Present: normal appearance, soft, normal bowel sounds Uterus: Present: normal, firm, fundal height below umbilicus Extremities: Present: normal - Labs Labs: Abnormal lab results 09/01/20 09/02/20 09/02/20 Range/Units 17:30 20:41 20:41 WBC 24.4 H (4.5-11.0) K/mm3 RBC 3.31 L (3.65-5.03) M/mm3 Hgb 8.9 L (10.1-14.3) gm/dl Hct 27.3 L (30.3-42.9) % MCH 27 L (28-32) pg Carbon Dioxide 21 L (22-30) mmol/L BUN 6 L (7-17) mg/dL Creatinine 0.5 L (0.6-1.2) mg/dL Glucose 109 H (65-100) mg/dL Calcium 7.8 L (8.4-10.2) mg/dL Alkaline Phosphatase 159 H (35-129) units/L Total Protein 5.2 L (6.3-8.2) g/dL Albumin 2.4 L (3.9-5) g/dL Crossmatch See Detail
--- NOTE | 2020-09-03 12:58 | Post Anesthesia Evaluation ---
- Post Anesthesia Evaluation Patient Participated: Yes Airway Patent: Yes Stable Respiratory Function: Yes Nausea/Vomiting: No Temp > 96.8F: Yes Pain Manageable: Yes Adequeate Hydration: Yes Anesthesia Complications: No Block Receding Appropriately: Yes Patient on Ventilator: No
[2020-09-03 14:34] LABS: Hematocrit 21.5 % (30.3-42.9); Hemoglobin 7.4 gm/dl (10.1-14.3)
[2020-09-03 16:53] LABS: Bilirubin,Urine NEG (Negative); Blood,Urine LG (Negative); Color,Urine Yellow (Yellow); Mucus,Urine FEW /HPF; Protein,Urine <15 mg/dL mg/dL (Negative); Urobilinogen,Urine < 2.0 mg/dL (<2.0)
[2020-09-03 16:54] LABS: RBC,Urine > 182.0 /HPF (0.0-6.0)
[2020-09-03 20:42] LABS: Basophils % (Auto) 0.3 % (0.0-1.8); Eosinophils # (Auto) 0.1 K/mm3 (0.0-0.4); Eosinophils % (Auto) 0.8 % (0.0-4.3); Hemoglobin 7.1 gm/dl (10.1-14.3); Lymphocytes # (Auto) 3.6 K/mm3 (1.2-5.4); Lymphocytes % (Auto) 22.5 % (13.4-35.0); Mean Corpuscular HGB Conc 34 % (30-34); Mean Corpuscular Volume 82 fl (79-97); Monocytes % (Auto) 6.5 % (0.0-7.3); Platelet Count 241 K/mm3 (140-440); Red Blood Count 2.55 M/mm3 (3.65-5.03); Red Cell Distribution Width 14.8 % (13.2-15.2)
[2020-09-03] MEDS ORDERED: diphenhydrAMINE 25 MG CAP PO ONE (22:11)
[2020-09-03] MEDS ORDERED: GENTAMICIN 420 MG in SODIUM CHLORIDE 0.9% 100 ML IV SCH (22:15)
[2020-09-03] MEDS ORDERED: SODIUM CHLORIDE 0.9% 500 ML 500 ML IV SCH (22:17)
[2020-09-03] MEDS: ACETAMINOPHEN 325 MG TAB PO PRN (22:39)
[2020-09-04] MEDS: ASCORBIC ACID 500 MG TAB PO SCH ×3 (02:31→14:11)
[2020-09-04] MEDS: IBUPROFEN 600 MG TAB PO PRN ×2 (02:31→12:08)
[2020-09-04] MEDS: FERROUS SULFATE 325 MG TAB PO SCH ×3 (02:31→14:11)
[2020-09-04] MEDS: DOCUSATE SODIUM 100 MG CAP PO SCH ×2 (02:31→12:08)
[2020-09-04] MEDS ORDERED: GENTAMICIN 320 MG in SODIUM CHLORIDE 0.9% 100 ML IV SCH (03:00)
[2020-09-04] MEDS: LACTATED RINGERS 1,000 ML IV SCH (05:48)
[2020-09-04] MEDS: AMPICILLIN/NS 2 GM/100 ML 2 GM/100 ML BAG IV SCH (05:49)
[2020-09-04] MEDS: HYDROcodone/ACETAMINOPHEN 5-325 MG TAB PO PRN (06:04)
--- NOTE | 2020-09-04 10:15 | Progress Note ---
Assessment and Plan A: S/P S/P Maternal fever Asymptomatic anemia p: Continue routine pp care D/C ABT per POC Continue Fe as prescribed May go home if CBC values are improving Subjective - Subjective Date of service: 09/04/20 Principal diagnosis: S/P Patient reports: appetite normal, voiding normally, pain well controlled, ambulating normally [place]: doing well, bottle feeding Objective - Vital Signs Latest vital signs: Vital Signs Temp Pulse Resp BP BP Pulse Ox 09/04/20 07:48 97.6 F 90 18 97/65 97 09/04/20 06:04 18 09/04/20 01:29 97.8 F 107 H 18 107/66 98 09/04/20 00:59 98.2 F 100 H 18 105/68 98 09/04/20 00:33 0 F L 0 L 0 L 0/0 09/04/20 00:30 97.9 F 95 H 16 114/74 98 09/04/20 00:29 97.9 F 95 H 16 114/74 98 09/03/20 23:59 98.6 F 104 H 18 110/69 99 09/03/20 23:29 98.6 F 116 H 16 109/66 99 09/03/20 23:14 98.0 F 97 H 16 108/66 98 09/03/20 21:36 120 H 101/59 97 09/03/20 18:42 16 09/03/20 17:18 97.9 F 110 H 18 101/60 98 09/03/20 12:51 97.6 F 97 H 18 109/68 97 Intake and Output 09/03/20 09/04/20 09/04/20 22:59 06:59 14:59 Intake Total 150 250 Output Total 1 2 Balance 149 248 Intake: IV 150 AMPICILLIN/NS 2 GM/100 ML 100 2 gm In 100 ml @ 100 mls /hr IV Q6H DANNY Rx#: [id number] CLEOCIN 900 MG/50 mL 900 50 mg In 50 ml @ 100 mls/hr IV Q8HR DANNY Rx#:[id number] Blood Product 250 Leukoreduced Rbc Part 2 250 Unit [id number] Output: Pad Count 1 2 Other: # Voids Void 1 - Exam Breasts: Present: normal Abdomen: Present: normal appearance, soft, normal bowel sounds Vulva: both: normal Uterus: Present: normal, firm, fundal height below umbilicus Extremities: Present: normal - Labs Labs: Abnormal lab results 09/01/20 09/03/20 09/03/20 Range/Units 17:30 13:30 16:20 WBC (4.5-11.0) K/mm3 RBC (3.65-5.03) M/mm3 Hgb 7.4 L (10.1-14.3) gm/dl Hct 21.5 L (30.3-42.9) % [place] # (Auto) (0.0-0.8) K/mm3 Seg Neutrophils # (1.8-7.7) K/mm3 Urine WBC (Auto) 29.0 H (0.0-6.0) /HPF Crossmatch See Detail 09/03/20 Range/Units 20:24 WBC 15.9 H (4.5-11.0) K/mm3 RBC 2.55 L (3.65-5.03) M/mm3 Hgb 7.1 L (10.1-14.3) gm/dl Hct 21.0 L (30.3-42.9) % [place] # (Auto) 1.0 H (0.0-0.8) K/mm3 Seg Neutrophils # 11.1 H (1.8-7.7) K/mm3 Urine WBC (Auto) (0.0-6.0) /HPF Crossmatch
--- NOTE | 2020-09-04 10:16 | Event Note ---
Date: 09/04/20 Nurse from [facility] shift superintendent notified me at 7pm of hgb falling to 7.4 after receiving 1unit of blood. Pt remains with tacchycardia 110-120's after repeat hgb 7.1 6hrs later that I ordered, therefore I told her to transfuse pt another unit of blood and repeat cbc at 7am. Pt also told to do pad count every 2hrs for 8hrs and call me if pads soaked during that time.
[2020-09-04 10:19] LABS: Basophils # (Auto) 0.1 K/mm3 (0.0-0.1); Basophils % (Auto) 0.6 % (0.0-1.8); Eosinophils # (Auto) 0.3 K/mm3 (0.0-0.4); Hematocrit 24.1 % (30.3-42.9); Lymphocytes # (Auto) 3.5 K/mm3 (1.2-5.4); Mean Corpuscular HGB Conc 33 % (30-34); Mean Corpuscular Volume 84 fl (79-97); Monocytes # (Auto) 0.6 K/mm3 (0.0-0.8); Platelet Count 235 K/mm3 (140-440); Red Blood Count 2.87 M/mm3 (3.65-5.03); Red Cell Distribution Width 15.7 % (13.2-15.2)
--- NOTE | 2020-09-04 10:32 | Electrocardiograph Report ---
[facility] Test Date: 2020-09-02 Test Time: 20:36:55 Pat Name: JUVENAL RUCKER Department: Room: 2119 Gender: F Certified Adapted Physical Educator: MARBIN BAUMANN : 1995 Requested By: THAI DAVIS Order Number: [id number] Reading MD: Pineda Stock Measurements Intervals [place] Rate: 147 P: 69 [place]: 115 QRS: 43 QRSD: 74 T: -1 QT: 282 QTc: 441 Interpretive Statements Sinus tachycardia No previous ECG available for comparison Electronically Signed On 09-04-2020 10:32:07 EDT by Pineda Stock
--- NOTE | 2020-09-04 10:56 | Discharge Summary ---
Providers - Providers Date of Admission: 09/01/20 11:18 Date of discharge: 09/04/20 Attending physician: BRISA ROMERO MD Primary care physician: QIAN DAO JR, MD Hospitalization Reason for admission: active labor Delivery: Episiotomy: none Laceration: 1st degree Incision: normal Other procedures: none complications: other (symptomatic anemia) Discharge diagnosis: IUP at term delivered baby: male Hospital course: Pt was admitted to [facility] in labor. She had a developed anemia pp and required 2U PRBCs. See H&P, delivery summary, and pp notes. Condition at discharge: Stable Disposition: DC-01 TO HOME OR SELFCARE Plan - Discharge Medications Prescriptions: Ferrous Sulfate [Feosol 325 MG tab] 325 mg PO BID #120 tablet Ibuprofen [Motrin 600 MG tab] 600 mg PO Q8H PRN #30 tablet PRN Reason: Pain, Mild (1-3) - Provider Discharge Summary Activity: routine, no sex for 6 weeks, no heavy lifting 4 weeks, no strenuous exercise Diet: routine Instructions: routine Additional instructions: [] Smoking cessation referral if applicable(refer to patient education folder for contact #) [] Refer to [facility] Booklet Call your doctor immediately for: * Fever > 100.5 * Heavy vaginal bleeding ( >1 pad per hour) * Severe persistent headache * Shortness of breath * Reddened, hot, painful area to leg or breast * Drainage or odor from incision. * Keep incision clean and dry at all times and follow doctor's instructions regarding bathing/showering - Follow up plan Follow up: QIAN DAO JR, MD [Primary Care Provider] - 6 Weeks
[2020-09-04 16:36] VITALS: BP 109/77
== END 2020-09-04 15:45 | disposition home or self-care (01) | DRG 775 ==
LOC: TRG 08:43 → APU 08:47 → LD 11:18 → TRG 16:30 → OB 09-03 09:05
PROVIDERS: ADMIT Obstetrics & Gynecology; ATTEND Obstetrics & Gynecology
PROC: 10E0XZZ Delivery of Products of Conception, External Approach (ICD-10-PCS; principal; 2020-09-02)
PROC: 3E033VJ Introduction of Other Hormone into Peripheral Vein, Percutaneous Approach (ICD-10-PCS; 2020-09-02)
PROC: 0U7C7ZZ Dilation of Cervix, Via Natural or Artificial Opening (ICD-10-PCS; 2020-09-02)
PROC: 3E0R3BZ Introduction of Anesthetic Agent into Spinal Canal, Percutaneous Approach (ICD-10-PCS; 2020-09-02)
PROC: 00HU33Z Insertion of Infusion Device into Spinal Canal, Percutaneous Approach (ICD-10-PCS; 2020-09-02)
PROC: 0HQ9XZZ Repair Perineum Skin, External Approach (ICD-10-PCS; 2020-09-02)
DX: O42.913 Preterm premature rupture of membranes, unspecified as to length of time between rupture and onset of labor, third trimester (principal); O70.0 First degree perineal laceration during delivery; O99.03 Anemia complicating the puerperium; Z20.822 Contact with and (suspected) exposure to COVID-19; Z3A.36 36 weeks gestation of pregnancy; Z37.0 Single live birth; Z79.899 Other long term (current) drug therapy; Z79.891 Long term (current) use of opiate analgesic; Z79.01 Long term (current) use of anticoagulants; D64.9 Anemia, unspecified
CPT/HCPCS: 36415; 59025; 71045; 80053; 81001; 82962; 85014; 85018; 85025; 85027; 86592; 86706; 86762; 86803; 86850; 86900; 86901; 86920; 87040; 87086; 87806; 88307; 93005; 96360; 96361; 96372; 96374; 99211; G0378; G0463; J0290; J0595; J1100; J1580; J1750; J2210; J2405; J2590; J3010; J7120; P9016; U0003